=== PATIENT | female | born 1970 | race African-American/Black ===

== ENCOUNTER 2024-12-08 12:35 | Inpatient (IN) | payer OTHER ==
[2024-12-08 13:18] VITALS: RESP 16; BMI 25.9
[2024-12-08] MEDS ORDERED: guaiFENesin 600 MG TABLET.ER (FP) PO PRN (13:48)
[2024-12-08] MEDS ORDERED: NICOTINE POLACRILEX 2 MG LOZENGE BC PRN (13:48)
[2024-12-08] MEDS ORDERED: IBUPROFEN 400 MG TABLET (FP) PO PRN (13:48)
[2024-12-08] MEDS ORDERED: BENZONATATE 200 MG CAPSULE PO PRN (13:48)
[2024-12-08] MEDS ORDERED: NALOXONE (NARCAN) HCL 4 MG/0.1 ML SPRAY NS PRN (13:48)
[2024-12-08] MEDS ORDERED: LOPERAMIDE HCL 2 MG CAPSULE PO PRN (13:48)
[2024-12-08] MEDS ORDERED: NICOTINE POLACRILEX 2 MG GUM BUC PRN (13:48)
[2024-12-08] MEDS ORDERED: BENZOCAINE/MENTHOL (CHLORASEPTIC ) LOZENGE MM PRN (13:48)
[2024-12-08] MEDS ORDERED: ACETAMINOPHEN 325 MG TABLET (FP) PO PRN (13:48)
[2024-12-08] MEDS ORDERED: MAG HYDROX/AL HYDROX/SIMETH 30 ML UNIT-DOSE CUP PO PRN (13:48)
[2024-12-08] MEDS ORDERED: ALBUTEROL SO4 HFA INHALER IH PRN (15:40)
[2024-12-08] MEDS: IBUPROFEN 600 MG TABLET (FP) PO PRN (16:37)
[2024-12-08] MEDS: hydrOXYzine PAMOATE 25 MG CAPSULE (FP) PO PRN (16:37)
[2024-12-08] MEDS ORDERED: METHOCARBAMOL 500 MG TABLET PO PRN (17:41)
[2024-12-08] MEDS: THIAMINE 100 MG TABLET PO SCH (22:05)
[2024-12-08] MEDS: MELATONIN 5 MG TABLETS PO SCH (22:05)
[2024-12-08] MEDS: LABETALOL HCL 200 MG TABLET (FP) PO SCH (22:05)
[2024-12-08] MEDS: MAGNESIUM HYDROX 2400MG/30ML ORAL SUSPENSION 30 ML CUP PO PRN (22:06)
[2024-12-09] MEDS: POLYETHYLENE GLYCOL (HEALTHYLAX) 3350 17 GM PACKET PO PRN (05:41)
[2024-12-09] MEDS: BICTEGRAV/EMTRICIT/TENOFOV (BIKTARVY) 50-200-25 MG TABLET PO SCH (07:18)
[2024-12-09 09:07] VITALS: BP 130/92; PULSE 75; TEMP 96.8
[2024-12-09] MEDS: NIFEdipine E.R 60 MG TABLET PO SCH (09:12)
[2024-12-09] MEDS: PRENATAL VITAMINS W/ FOLIC ACID TABLET (FP) PO SCH (09:12)
[2024-12-09 12:00] LABS: HEMATOCRIT 33.4 % (34.1-44.9); HEMOGLOBIN 10.9 g/dL (11.2-15.7); MCHC 32.6 g/dl (32.2-35.5); MEAN CELL VOLUME 96.5 fl (79.4-94.8); MEAN PLT VOLUME 11.4 fl (9.4-12.3); PLATELET COUNT 235 x10^3/uL (182-369); RDW 14.8 % (12.3-16.6)
[2024-12-09 12:59] LABS: CHLORIDE 112 mmol/L (98-107); POTASSIUM 3.9 mmol/L (3.5-5.1); SODIUM 140 mmol/L (136-145)
[2024-12-09 13:07] LABS: ALBUMIN 2.8 g/dl (3.4-5.0); BLOOD UREA NITROGEN 24.3 mg/dL (7-18); CALCIUM 8.8 mg/dL (8.5-10.1)
[2024-12-09 13:08] LABS: ANION GAP 7 mmol/L (4-13); CO2 21 mmol/L (21-32); GLUCOSE,RANDOM 113 mg/dL (74-106)
[2024-12-09 13:10] LABS: CREATININE 0.9 mg/dL (0.55-1.3); SGOT/AST 17 U/L (15-37); SGPT/ALT 14 U/L (13-61)
[2024-12-09 13:11] LABS: BILIRUBIN,TOTAL 0.1 mg/dL (0.2-1); TOT PROT 6.4 g/dl (6.4-8.2)
[2024-12-09 13:12] LABS: ALK PHOS 116 U/L (45-117)
[2024-12-09 13:30] LABS: SYPHILIS W/ RPR CONF NON-REACTIVE (NONREACTIVE)
[2024-12-09 13:59] LABS: HCV DIAGNOSTIC IN-HOUSE W/RFLX NON-REACTIVE (NONREACTIVE)
== END 2024-12-09 11:07 | disposition left against medical advice (07) | DRG 770 ==
LOC: YASAS 12:35 → Y3NR 15:01
PROVIDERS: ADMIT Psychiatry & Neurology Pain Medicine; ATTEND Psychiatry & Neurology Pain Medicine
PROC: HZ42ZZZ Group Counseling for Substance Abuse Treatment, Cognitive-Behavioral (ICD-10-PCS; principal; 2024-12-08)
DX: F10.20 Alcohol dependence, uncomplicated (principal); F14.20 Cocaine dependence, uncomplicated; F17.210 Nicotine dependence, cigarettes, uncomplicated; Z21 Asymptomatic human immunodeficiency virus [HIV] infection status; I10 Essential (primary) hypertension; J45.909 Unspecified asthma, uncomplicated; Z88.8 Allergy status to other drugs, medicaments and biological substances
CPT/HCPCS: 36415; 80053; 80305; 80307; 81025; 85027; 86780; 86803; 87811; 93005; 93010